=== PATIENT | male | born 1970 ===

== ENCOUNTER 2018-09-13 15:52 | Inpatient (IN) ==
[2018-09-13] MEDS ORDERED: ATIVAN ONE (15:58)
[2018-09-13] MEDS ORDERED: ATIVAN IV ONE (16:22)
[2018-09-13] MEDS ORDERED: KEPPRA 1,000 MG in NS 100 ML IV ONE (16:22)
[2018-09-13 16:40] LABS: BASO# 0.04 X1000 (0.0-0.2); BASO% 0.4 % (0.0-0.8); EOS# 0.15 X1000 (0.0-0.7); EOS% 1.5 % (0.0-10.0); HEMATOCRIT 38.3 % (42.0-52.0); HEMOGLOBIN 12.7 g/dL (14.0-18.0); IMM GRAN# 0.02 X1000 (0.0-0.04); IMM GRAN% 0.2 % (0.0-0.5); LYMPH# 3.42 X1000 (1.2-3.4); LYMPH% 33.6 % (20.5-51.1); MCH 26.6 PG (27-31); MCHC 33.2 g/dL (33-37); MCV 80.1 FL (81-99); MONO# 1.19 X1000 (0.11-0.59); MONO% 11.7 % (1.7-9.3); MPV 9.2 FL (7.4-10.4); NEUT# 5.37 X1000 (1.4-6.5); NEUT% 52.6 % (42.2-75.2); PLT 350 X1000 (130-400); RBC 4.78 XMIL (4.7-6.1); RDW 13.4 % (11.5-14.5); WBC 10.19 X1000 (4.8-10.8)
[2018-09-13 16:46] LABS: CALCIUM 9.1 mg/dL (8.8-10.2); CREATININE 1.4 mg/dL (0.7-1.2); POTASSIUM 3.9 mmol/L (3.5-5.1)
[2018-09-13 16:56] LABS: BILIRUBIN URINE NEGATIVE (NEGATIVE); BLOOD URINE 2+ (NEGATIVE); GLUCOSE URINE NEGATIVE (NEGATIVE); KETONE URINE 1+(Small) mg/dL (NEGATIVE); LEUKOCYTES URINE NEGATIVE (NEGATIVE); NITRITE URINE NEGATIVE (NEGATIVE); PROTEIN URINE 2+(100 mg/dL) mg/dL (NEGATIVE); UROBILINOGEN URINE NORMAL
[2018-09-13 16:57] LABS: CLARITY CLEAR (CLEAR); COLOR YELLOW
[2018-09-13 17:02] LABS: UR AMPHETAMINES QUAL NONE DETECTED (NONE DETECT); UR BARBITUATES QUAL NONE DETECTED (NONE DETECT); UR BENZODIAZEPIN QUAL NONE DETECTED (NONE DETECT); UR CANNABINOIDS QUAL NONE DETECTED (NONE DETECT); UR COCAINE QUAL NONE DETECTED (NONE DETECT); UR METHADONE QUAL NONE DETECTED (NONE DETECT); UR METHAMPHETAMINE QUAL NONE DETECTED (NONE DETECT); UR OPIATES QUAL NONE DETECTED (NONE DETECT); UR OXYCODONE QUAL NONE DETECTED (NONE DETECT); UR PCP QUAL NONE DETECTED (NONE DETECT); UR PROPOXYPHENE QUAL NONE DETECTED (NONE DETECT); UR TCA QUAL NONE DETECTED (NONE DETECT)
[2018-09-13 17:45] LABS: URINE SOURCE CLEAN CATCH
[2018-09-13 17:47] LABS: URINE BACTERIA 1+ /HFP; URINE CAST NONE SEEN /LPF; URINE CRYSTAL NONE SEEN /HPF; URINE EPITHELIAL CELLS >10 /HPF (<10); URINE RBC <10 /HPF (<10); URINE WBC <10 /HPF (<10); URINE YEAST NONE SEEN /HPF
--- NOTE | 2018-09-13 18:09 | Diag Imaging Result Doc PS360 ---
EXAM: CT HEAD/C-SPINE W/O CONTRAST INDICATION: head injury/pain TECHNIQUE: This exam was performed using automated exposure control, adjustment of mA or kV according to patient size, and/or use of iterative reconstruction technique. COMPARISON: CT head dated 08/30/2018 FINDINGS: Head: There is stable left occipitotemporal encephalomalacia. There is stable advanced white matter microangiopathy. There is no definite acute infarct given the limited sensitivity of CT versus MRI. The surrounding soft tissues are essentially unremarkable. The calvaria is intact. C-spine: The central canal appears to be grossly patent. There is no discrete fracture, subluxation, or intrinsic osseous lesion. The surrounding soft tissues are essentially unremarkable. IMPRESSION: 1.Stable chronic changes but no evidence of acute intracranial pathology. 2.No evidence of fracture or other definite acute C-spine injury. Electronically signed by Ben Ma 09/13/2018 6:07 PM
--- NOTE | 2018-09-13 18:10 | Diag Imaging Result Doc PS360 ---
EXAM: CHEST-PORTABLE INDICATION: SEIZURES TECHNIQUE: One view COMPARISON: None. FINDINGS: The lungs are grossly clear. There is no discrete pleural fluid collection or pneumothorax. The cardiomediastinal silhouette and central vasculature are grossly unremarkable. IMPRESSION: No evidence of acute pathology by plain radiograph. Electronically signed by Ben Ma 09/13/2018 6:07 PM
[2018-09-13] MEDS ORDERED: NS 1,000 ML IV ONE ×2 (18:34→21:27)
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
[2018-09-13] MEDS ORDERED: TYLENOL PO PRN (21:27)
[2018-09-13] MEDS ORDERED: ZOFRAN IV PRN (21:27)
[2018-09-14 07:13] LABS: AGAP 8; ALBUMIN 3.4 g/dL (3.5-5.0); ALKALINE PHOSPHATASE 68 U/L (32-122); BUN 10 mg/dL (8-22); CALCIUM 7.7 mg/dL (8.8-10.2); CHLORIDE 107 mmol/L (98-107); COSMO 280; ESTIMATED GFR > 60; GLUCOSE 123 mg/dL (70-104); GOT 13 U/L (10-34); GPT 9 U/L (10-44); POTASSIUM 3.9 mmol/L (3.5-5.1); SODIUM 140 mmol/L (136-145); TCO2 25 mmol/L (25-35); TOTAL PROTEIN 6.2 g/dL (6.3-8.3)
[2018-09-14 07:31] LABS: HEMATOCRIT 36.1 % (42.0-52.0); HEMOGLOBIN 12.3 g/dL (14.0-18.0); MCH 26.7 PG (27-31); MCHC 34.1 g/dL (33-37); MCV 78.3 FL (81-99); MPV 9.4 FL (7.4-10.4); RBC 4.61 XMIL (4.7-6.1); RDW 13.5 % (11.5-14.5); WBC 14.14 X1000 (4.8-10.8)
[2018-09-14] MEDS: KEPPRA PO SCH ×2 (10:25→20:53)
[2018-09-14] MEDS: COREG PO SCH ×2 (11:31→20:53)
[2018-09-14 14:45] LABS: UR AMPHETAMINES QUAL NONE DETECTED (NONE DETECT); UR BARBITUATES QUAL NONE DETECTED (NONE DETECT); UR BENZODIAZEPIN QUAL PRESUMPTIVE POSITIVE (NONE DETECT); UR CANNABINOIDS QUAL NONE DETECTED (NONE DETECT); UR COCAINE QUAL NONE DETECTED (NONE DETECT); UR METHADONE QUAL NONE DETECTED (NONE DETECT); UR METHAMPHETAMINE QUAL NONE DETECTED (NONE DETECT); UR OPIATES QUAL NONE DETECTED (NONE DETECT); UR OXYCODONE QUAL NONE DETECTED (NONE DETECT); UR PCP QUAL NONE DETECTED (NONE DETECT); UR PROPOXYPHENE QUAL NONE DETECTED (NONE DETECT); UR TCA QUAL NONE DETECTED (NONE DETECT)
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
[2018-09-15 05:54] LABS: HEMATOCRIT 35.5 % (42.0-52.0); HEMOGLOBIN 11.9 g/dL (14.0-18.0); MCH 26.4 PG (27-31); MCHC 33.5 g/dL (33-37); MCV 78.7 FL (81-99); MPV 9.4 FL (7.4-10.4); RBC 4.51 XMIL (4.7-6.1); RDW 13.5 % (11.5-14.5); WBC 7.9 X1000 (4.8-10.8)
[2018-09-15 06:16] LABS: AGAP 9; ALBUMIN 3.2 g/dL (3.5-5.0); ALKALINE PHOSPHATASE 76 U/L (32-122); BUN 12 mg/dL (8-22); CALCIUM 8.2 mg/dL (8.8-10.2); CHLORIDE 106 mmol/L (98-107); COSMO 279; CREATININE 1.1 mg/dL (0.7-1.2); ESTIMATED GFR > 60; GLUCOSE 91 mg/dL (70-104); GOT 12 U/L (10-34); GPT 8 U/L (10-44); MAGNESIUM 1.9 mg/dL (1.5-2.7); POTASSIUM 4.3 mmol/L (3.5-5.1); SODIUM 140 mmol/L (136-145); TCO2 26 mmol/L (25-35); TOTAL PROTEIN 6.2 g/dL (6.3-8.3)
[2018-09-15] MEDS: KEPPRA PO SCH (08:51)
[2018-09-15] MEDS: COREG PO SCH (08:51)
[2018-09-15] MEDS ORDERED: NORVASC PO SCH (09:00)
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
[2018-09-15 15:47] VITALS: BP 143/42
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
== END 2018-09-15 19:45 | disposition home or self-care (01) | DRG 101 ==
LOC: P.ED 15:52 → P.MEDSURG 20:41
PROVIDERS: ATTEND Family Medicine
CPT/HCPCS: 51701; 70450; 70553; 71010; 71045; 72125; 80048; 80053; 80104; 80177; 80299; 80301; 80305; 80307; 80320; 81001; 82055; 82491; 83605; 83735; 84443; 84484; 85025; 85027; 96361; 96365; 96375; 99285; A9270; A9579; G0431; G0434; G0477; G0480; G6040; J1953; J2060; J7030; P9612